=== PATIENT | female | born 1995 | race Caucasian/White ===

== ENCOUNTER 2017-09-01 00:46 | Observation (INO) | payer OTHER ==
[2017-09-01 01:45] LABS: Appearance CLEAR (CLEAR); Bacteria FEW /HPF (NEGATIVE); Bilirubin NEGATIVE (NEGATIVE); Blood NEGATIVE Ery/ul (0-5); Epithelial Cells MODERATE /HPF (FEW); Glucose NEGATIVE (NEGATIVE); Ketones NEGATIVE (NEGATIVE); Leukocyte Esterase 1+ (NEGATIVE); Nitrite NEGATIVE (NEGATIVE); Protein,Urine Dip NEGATIVE (Negative); Urobilinogen NORMAL mg/dL (0-1)
[2017-09-01 01:58] LABS: Amphetamine,Urine NEGATIVE (NEGATIVE); Barbiturate,Urine NEGATIVE (NEGATIVE); Benzodiazepine,Urine NEGATIVE (NEGATIVE); Cocaine,Urine NEGATIVE (NEGATIVE); Methadone,Urine NEGATIVE (NEGATIVE); Opiate,Urine NEGATIVE (NEGATIVE); PCP,Urine NEGATIVE (NEGATIVE); THC,Urine NEGATIVE (NEGATIVE)
[2017-09-01 04:50] VITALS: BP 123/70; PULSE 78
== END 2017-09-01 04:50 | disposition home or self-care (01) ==
LOC: MED SURG 00:46 → OB 02:05
PROVIDERS: ADMIT Family Medicine; ATTEND Family Medicine
DX: Z34.82 Encounter for supervision of other normal pregnancy, second trimester (principal)
CPT/HCPCS: 80307; 81000; G0378

== ENCOUNTER 2017-09-09 07:02 | Inpatient (IN) | payer OTHER ==
[2017-09-09] MEDS ORDERED: PITOCIN 30 UNITS/ LR 500 ML 500 ML IV SCH (07:30)
[2017-09-09] MEDS: Lactated Ringers 1,000 ML IV SCH ×2 (08:00→13:43)
[2017-09-09 08:17] LABS: Hematocrit 29.1 % (35-47); Hemoglobin 9.2 gm/dl (12.0-16.0); Mean Cell Volume 83.9 fl (78-100); Mean Corpuscular Hemoglobin 26.5 pg (26-32); Mean Corpuscular Hgb Concent. 31.6 g/dl (32-36); Mean Platelet Volume 11.2 fl (6-9.5); Platelet Count 264 K/mm3 (150-450); Red Blood Count 3.47 M/mm3 (4.1-5.4); Red Cell Distribution Width 15.3 % (11.5-14.0)
[2017-09-09 08:44] LABS: BAND 2 % (0.0-2.0); Lymphocytes 37 % (24-44); Monocyte 5 % (0.0-12.0); Neutrophils 56 % (36.0-66.0); Platelet Estimate NORMAL (NORMAL); Total Cells Counted 100
[2017-09-09 08:46] LABS: Granulocyte Absolute (ANC) 4.63 (1.4-6.9)
[2017-09-09] MEDS: STADOL 2 MG IV PRN ×2 (12:00→13:43)
[2017-09-09] MEDS ORDERED: OB EPIDURAL NAROPIN/SUFENTANIL IN NACL EPIDURAL PRN (16:46)
[2017-09-09] MEDS ORDERED: Lactated Ringers 1,000 ML IV ONE (16:46)
[2017-09-09] MEDS ORDERED: Ephedrine Sulfate 50 MG/ML IV PRN (16:46)
[2017-09-09] MEDS ORDERED: Mylicon 80MG PO PRN (16:47)
[2017-09-09] MEDS ORDERED: Dulcolax 10 MG SUPP PR PRN (16:47)
[2017-09-09] MEDS ORDERED: Dermoplast Spray TP PRN (16:47)
[2017-09-09] MEDS ORDERED: Restoril 15 MG PO PRN (16:47)
[2017-09-09] MEDS ORDERED: NORCO 5/325 MG PO PRN (16:47)
[2017-09-09] MEDS ORDERED: Ambien 10 MG PO PRN (16:47)
[2017-09-09] MEDS ORDERED: TYLENOL EXTRA STRENGTH 500 MG PO PRN (16:47)
[2017-09-09] MEDS ORDERED: Anucort-HC SUPPOSITORY PR PRN (16:47)
[2017-09-09] MEDS ORDERED: CORTISONE 1% CREAM TP PRN (16:47)
[2017-09-09] MEDS ORDERED: TUCKS TP PRN (16:47)
[2017-09-09] MEDS ORDERED: Rhogam Plus 300 MCG IM ONE (17:30)
[2017-09-09] MEDS ORDERED: Adacel Vial IM ONE (18:00)
[2017-09-09] MEDS ORDERED: M-M-R II Vaccine With Diluent SQ ONE (18:00)
[2017-09-09] MEDS: MOTRIN 400 MG PO PRN (20:08)
[2017-09-09 20:54] LABS: Amphetamine,Urine NEGATIVE (NEGATIVE); Barbiturate,Urine NEGATIVE (NEGATIVE); Benzodiazepine,Urine NEGATIVE (NEGATIVE); Cocaine,Urine NEGATIVE (NEGATIVE); Methadone,Urine NEGATIVE (NEGATIVE); Opiate,Urine NEGATIVE (NEGATIVE); PCP,Urine NEGATIVE (NEGATIVE); THC,Urine NEGATIVE (NEGATIVE)
[2017-09-09] MEDS: Colace 100 MG PO SCH (21:52)
[2017-09-10] MEDS: MOTRIN 400 MG PO PRN ×3 (03:59→16:49)
[2017-09-10 06:00] LABS: BASOPHIL % 0.2 % (0.0-0.4); Basophil (Absolute #) 0.02 (0-0.4); Eosinophil % 0.2 % (0.00-5.0); Eosinophil (Absolute #) 0.02 (0-0.5); Granulocyte Absolute (ANC) 7.45 (1.4-6.9); Hematocrit 28.3 % (35-47); Hemoglobin 8.8 gm/dl (12.0-16.0); Lymphocyte (Absolute #) 2.11 (1.0-4.6); Lymphocytes % 20.4 % (24.0-44.0); Mean Cell Volume 84.7 fl (78-100); Mean Corpuscular Hemoglobin 26.3 pg (26-32); Mean Corpuscular Hgb Concent. 31.1 g/dl (32-36); Mean Platelet Volume 11.4 fl (6-9.5); Monocyte (Absolute #) 0.74 (0.0-1.3); Monocytes % 7.2 % (0.0-12.0); Platelet Count 242 K/mm3 (150-450); Red Blood Count 3.34 M/mm3 (4.1-5.4); Red Cell Distribution Width 15.4 % (11.5-14.0); White Blood Count 10.3 K/mm3 (4.0-10.5)
[2017-09-10] MEDS: Colace 100 MG PO SCH ×3 (10:44→22:00)
[2017-09-10] MEDS: FERREX 150 PO SCH (10:44)
[2017-09-11] MEDS: MOTRIN 400 MG PO PRN ×2 (00:06→11:41)
[2017-09-11 01:53] VITALS: O2SAT 98
[2017-09-11 06:08] LABS: BASOPHIL % 0.2 % (0.0-0.4); Basophil (Absolute #) 0.02 (0-0.4); Eosinophil (Absolute #) 0.08 (0-0.5); Granulocyte Absolute (ANC) 5.34 (1.4-6.9); Granulocytes % 64.7 % (36.0-66.0); Hematocrit 27.2 % (35-47); Hemoglobin 8.5 gm/dl (12.0-16.0); Lymphocyte (Absolute #) 2.24 (1.0-4.6); Lymphocytes % 27.2 % (24.0-44.0); Mean Corpuscular Hgb Concent. 31.3 g/dl (32-36); Mean Platelet Volume 11.1 fl (6-9.5); Monocyte (Absolute #) 0.57 (0.0-1.3); Monocytes % 6.9 % (0.0-12.0); Platelet Count 270 K/mm3 (150-450); Red Cell Distribution Width 15.8 % (11.5-14.0); White Blood Count 8.3 K/mm3 (4.0-10.5)
[2017-09-11 06:10] LABS: Mean Corpuscular Hemoglobin 26.5 pg (26-32)
--- NOTE | 2017-09-11 10:50 | PCM.DS ---
Discharge Summary Date of Admission: 09/09/17 07:02 Admitting Physician: MONICA PAULA Consults: Consults on Case 09/09/17 16:46 Notify Anesthesia Provider PRN 09/09/17 16:47 Notify Physician Primary Care Provider: MONICA PAULA Allergies Allergies Penicillins Allergy (Intermediate, Verified 09/01/17 01:32) [facility] Summary - Hospital Course Hospital Course: Pt was admitted as in spontaneous labor, delivered vaginally without complication. Had some shortness of breath and fatigue her first post day, with hgb 8.8. Has no complaints today and hgb is stable at 8.5. Bleeding is lessening. Taking ibuprofen for pain intermittently. Will discharge to home. - Vitals & Intake/Output Vital Signs: Vital Signs Temperature 98 F 09/11/17 01:46 Pulse Rate 75 09/11/17 08:00 Respiratory Rate 18 09/11/17 08:00 Blood Pressure 105/65 09/11/17 08:00 O2 Sat by Pulse Oximetry 98 09/11/17 01:46 Intake & Output: Intake & Output 09/08/17 09/09/17 09/10/17 09/11/17 11:59 11:59 11:59 11:59 Intake Total 3200 2910 1000 Output Total 200 200 Balance 3000 2710 1000 Weight 132 kg - Lab Result Diagrams: 09/11/17 05:45 Lab Results-Last 24 Hrs: Lab Results-Last 24 Hours 09/11/17 Range/Units 05:45 WBC 8.3 (4.0-10.5) K/mm3 RBC 3.20 L (4.1-5.4) M/mm3 Hgb 8.5 L (12.0-16.0) gm/dl Hct 27.2 L (35-47) % MCV 85.0 (78-100) fl MCH 26.5 (26-32) pg MCHC 31.3 L (32-36) g/dl RDW 15.8 H (11.5-14.0) % Plt Count 270 (150-450) K/mm3 MPV 11.1 H (6-9.5) fl Gran % 64.7 (36.0-66.0) % Eos # (Auto) 0.08 (0-0.5) Absolute Lymphs (auto) 2.24 (1.0-4.6) Absolute Monos (auto) 0.57 (0.0-1.3) Lymphocytes % 27.2 (24.0-44.0) % Monocytes % 6.9 (0.0-12.0) % Eosinophils % 1.0 (0.00-5.0) % Basophils % 0.2 (0.0-0.4) % Absolute Granulocytes 5.34 (1.4-6.9) Basophils # 0.02 (0-0.4) Discharge Exam General Appearance: no apparent distress, alert Neurologic Exam: oriented x 3, cooperative Skin Exam: normal color, warm, dry, No rash Eye Exam: eyes nml inspection Ears, Nose, Throat Exam: moist mucous membranes Neck Exam: normal inspection Respiratory Exam: normal breath sounds, lungs clear, No crackles/rales, No rhonchi, No wheezing Cardiovascular Exam: regular rate/rhythm, normal heart sounds, No murmur Gastrointestinal/Abdomen Exam: soft, normal bowel sounds, other (fundus firm under umbilicus) Extremity Exam: No pedal edema, No swelling Back Exam: normal inspection, No rash Final Diagnosis/Problem List - Final Discharge Diagnosis/Problem (1) Vaginal delivery Current Visit: Yes Status: Acute Assessment & Plan: Doing great, d/c home today on ibuprofen. Baby was sleeping with dad when I came in the room, I spoke with mom and dad both about the dangers of sleeping with the baby, advised DO NOT sleep with baby. (2) Anemia Current Visit: Yes Status: Acute Assessment & Plan: will give iron BID - Discharge Disposition: Home, Self-Care Condition: Good Prescriptions: New Ibuprofen 600 mg PO TID PRN #35 tablet PRN Reason: Pain Continue Ferrous Sulfate [Iron] 325 mg PO BID Follow up with: MONICA PAULA MD [Primary Care Provider] - 1 Week
[2017-09-11] MEDS: FERREX 150 PO SCH (11:41)
[2017-09-11] MEDS: Colace 100 MG PO SCH (11:43)
[2017-09-11 17:05] VITALS: BP 114/69; PULSE 68
== END 2017-09-11 17:35 | disposition home or self-care (01) | DRG 775 ==
LOC: OBSVTOIN 07:02 → MED SURG 07:02 → OB 13:11
PROVIDERS: ADMIT Family Medicine; ATTEND Family Medicine
PROC: 10E0XZZ Delivery of Products of Conception, External Approach (ICD-10-PCS; principal; 2017-09-09)
DX: O80 Encounter for full-term uncomplicated delivery (principal); Z3A.39 39 weeks gestation of pregnancy; Z37.0 Single live birth; D64.9 Anemia, unspecified
CPT/HCPCS: 36415; 80307; 85025; 90471; 90472; 90707; 90715; G0378; J0595; J2590; J2790; J2795; A9270-GY

== ENCOUNTER 2019-02-17 20:23 | Observation (INO) | payer OTHER ==
[2019-02-17 21:03] LABS: Appearance CLOUDY (CLEAR); Bilirubin NEGATIVE (NEGATIVE); Blood NEGATIVE Ery/ul (0-5); Epithelial Cells FEW /HPF (FEW); Glucose NEGATIVE (NEGATIVE); Ketones NEGATIVE (NEGATIVE); Leukocyte Esterase LARGE (NEGATIVE); Mucus SLIGHT /HPF (NEGATIVE); Nitrite NEGATIVE (NEGATIVE); Protein,Urine Dip NEGATIVE (Negative); Specific Gravity 1.018 (1.005-1.025); Urobilinogen 4 mg/dL (0-1); WBC 51-100 /HPF (0-5)
[2019-02-17 21:23] LABS: Amphetamine,Urine NEGATIVE (NEGATIVE); Barbiturate,Urine NEGATIVE (NEGATIVE); Benzodiazepine,Urine NEGATIVE (NEGATIVE); Cocaine,Urine NEGATIVE (NEGATIVE); Methadone,Urine NEGATIVE (NEGATIVE); Opiate,Urine NEGATIVE (NEGATIVE); PCP,Urine NEGATIVE (NEGATIVE); THC,Urine NEGATIVE (NEGATIVE)
[2019-02-17 23:33] VITALS: BP 111/57; PULSE 77; O2SAT 97
== END 2019-02-17 23:20 | disposition home or self-care (01) ==
LOC: OB 20:23
PROVIDERS: ADMIT Family Medicine; ATTEND Family Medicine
DX: Z34.83 Encounter for supervision of other normal pregnancy, third trimester (principal)
CPT/HCPCS: 80307; 81001; 87086; G0378

== ENCOUNTER 2019-02-21 23:18 | Observation (INO) | payer OTHER ==
[2019-02-21 23:54] LABS: Appearance SLIGHTLY CLOUDY (CLEAR); Bilirubin NEGATIVE (NEGATIVE); Blood NEGATIVE Ery/ul (0-5); Epithelial Cells RARE /HPF (FEW); Glucose NEGATIVE (NEGATIVE); Ketones NEGATIVE (NEGATIVE); Leukocyte Esterase MODERATE (NEGATIVE); Mucus SLIGHT /HPF (NEGATIVE); Nitrite NEGATIVE (NEGATIVE); Protein,Urine Dip NEGATIVE (Negative); RBC 0-2 /HPF (0-2); Specific Gravity 1.015 (1.005-1.025); Urobilinogen 2 mg/dL (0-1)
[2019-02-22 00:02] LABS: Amphetamine,Urine NEGATIVE (NEGATIVE); Barbiturate,Urine NEGATIVE (NEGATIVE); Benzodiazepine,Urine NEGATIVE (NEGATIVE); Cocaine,Urine NEGATIVE (NEGATIVE); Methadone,Urine NEGATIVE (NEGATIVE); Opiate,Urine NEGATIVE (NEGATIVE); PCP,Urine NEGATIVE (NEGATIVE); THC,Urine NEGATIVE (NEGATIVE)
[2019-02-22] MEDS ORDERED: Lactated Ringers 1,000 ML IV ONE ×2 (02:14→02:20)
[2019-02-22] MEDS ORDERED: ROCEPHIN 1 Gm-D5w 50 ml Bag** 1 G/50 ML IVPB IV ONE (02:15)
[2019-02-22] MEDS ORDERED: BENADRYL 25 MG CAPSULE PO ONE (02:17)
[2019-02-22] MEDS ORDERED: BENADRYL 25 MG CAPSULE ONE (02:21)
[2019-02-22 05:17] VITALS: BP 108/60; PULSE 71
== END 2019-02-22 05:00 | disposition home or self-care (01) ==
LOC: OB 23:18
PROVIDERS: ADMIT Family Medicine; ATTEND Family Medicine
DX: Z34.83 Encounter for supervision of other normal pregnancy, third trimester (principal)
CPT/HCPCS: 80307; 81001; 87086; G0378; J0696; A9270-GY

== ENCOUNTER 2019-02-23 11:25 | Observation (INO) | payer OTHER ==
[2019-02-23 17:00] VITALS: BP 109/51; PULSE 93
== END 2019-02-23 14:00 | disposition home or self-care (01) ==
LOC: OB 11:25
PROVIDERS: ADMIT Family Medicine; ATTEND Family Medicine
DX: Z34.83 Encounter for supervision of other normal pregnancy, third trimester (principal)
CPT/HCPCS: G0378

== ENCOUNTER 2019-03-04 19:14 | Observation (INO) | payer OTHER ==
[2019-03-04 19:48] VITALS: O2SAT 98
[2019-03-04 20:07] LABS: Amphetamine,Urine NEGATIVE (NEGATIVE); Barbiturate,Urine NEGATIVE (NEGATIVE); Benzodiazepine,Urine NEGATIVE (NEGATIVE); Cocaine,Urine NEGATIVE (NEGATIVE); Methadone,Urine NEGATIVE (NEGATIVE); Opiate,Urine NEGATIVE (NEGATIVE); PCP,Urine NEGATIVE (NEGATIVE); THC,Urine NEGATIVE (NEGATIVE)
[2019-03-04 20:19] LABS: Appearance SLIGHTLY CLOUDY (CLEAR); Bilirubin NEGATIVE (NEGATIVE); Blood NEGATIVE Ery/ul (0-5); Epithelial Cells RARE /HPF (FEW); Glucose NEGATIVE (NEGATIVE); Ketones NEGATIVE (NEGATIVE); Leukocyte Esterase LARGE (NEGATIVE); Nitrite NEGATIVE (NEGATIVE); Protein,Urine Dip NEGATIVE (Negative); Specific Gravity 1.009 (1.005-1.025); Urobilinogen NEGATIVE mg/dL (0-1); WBC 26-50 /HPF (0-5)
[2019-03-04] MEDS ORDERED: Sodium Chloride 0.9% 1000 ML 1,000 ML IV STA (21:13)
[2019-03-04] MEDS ORDERED: ROCEPHIN 1 Gm-D5w 50 ml Bag** 1 G/50 ML IVPB IV ONE (21:21)
[2019-03-04] MEDS ORDERED: Lactated Ringers 1,000 ML IV SCH (21:30)
[2019-03-05 08:14] VITALS: BP 111/65; PULSE 75
[2019-03-05] MEDS ORDERED: ROCEPHIN 1 Gm-D5w 50 ml Bag** 1 G/50 ML IVPB IV ONE (21:13)
== END 2019-03-05 10:15 | disposition home or self-care (01) ==
LOC: OB 19:14
PROVIDERS: ADMIT Family Medicine; ATTEND Family Medicine
DX: Z34.83 Encounter for supervision of other normal pregnancy, third trimester (principal)
CPT/HCPCS: 80307; 81001; 87086; G0378; J0696

== ENCOUNTER 2020-12-08 17:33 | Emergency (ER) | payer OTHER ==
--- NOTE | 2020-12-08 18:25 | ERPHSYRPT ---
- History of Present Illness Time Seen by Provider: 12/08/20 17:50 Source: patient Exam Limitations: no limitations Patient Subjective Stated Complaint: Pt is 16.1 weeks and had a small amount of blood in underwear and then had began having sex and had more blood so she stopped and came to the hosp, states that she is having sharp pains everywhere in abdomen Triage Nursing Assessment: Pt was brought to the ER by the mother of the baby, pt is a serogate mother, tachycardic, rates pain in abdomen as 4/10, heart tones 144 bpm, light bleeding at this time per pt, doesn't appear to be in any distress Physician History: Patient is a 25-year-old female presents to our emergency department for evaluation of pelvic pain and vaginal bleeding patient is currently 16 weeks . Patient presents to our ED for evaluation of pelvic pain and vaginal bleeding. Symptoms started today. Patient observed blood in her underwear. Patient had intercourse with her significant other and states the bleeding became worse. Patient's pain is in the left pelvic region. Pain rated 4 out of 10. No associated nausea vomiting. No diarrhea. No rash. No trauma. No fever. Symptoms are mild to moderate in intensity. Patient denies the possibility of STI. Patient states she is otherwise healthy. She voices no other complaints at this time. RN notes states patient is a surrogate mother. Patient is not a surrogate mother. Patient is allowing her child to be adopted by a family friend. However patient is the biological parent to this fetus Timing/Duration: today Severity: moderate Modifying Factors: Improves With: nothing Associated Symptoms: denies symptoms Allergies/Adverse Reactions: Penicillins Allergy (Intermediate, Verified 03/04/19 19:51) Hives Home Medications: Multivit with Calcium,Iron,Min [Multiple Vitamins For Women] 1 tab PO DAILY 02/17/19 [History] Travel Risk - International Travel Have you traveled outside of the country in past 3 weeks: No - Coronavirus Screening Are you exhibiting any of the following symptoms?: No Close contact with a COVID-19 positive Pt in past 14-21 Days: No - Vaccine Status Have you recieved a Covid-19 vaccination: No - Review of Systems Constitutional: No Symptoms, No Fever, No Chills Eyes: No Symptoms Ears, Nose, & Throat: No Symptoms Respiratory: No Symptoms, No Cough, No Dyspnea Cardiac: No Symptoms, No Chest Pain, No Edema, No Syncope Abdominal/Gastrointestinal: No Symptoms, No Abdominal Pain, No Nausea, No Vomiting, No Diarrhea Genitourinary Symptoms: No Symptoms, No Dysuria Musculoskeletal: No Symptoms, No Back Pain, No Neck Pain Skin: No Symptoms, No Rash Neurological: No Symptoms, No Dizziness, No Focal Weakness, No Sensory Changes Psychological: No Symptoms Endocrine: No Symptoms Hematologic/Lymphatic: No Symptoms Immunological/Allergic: No Symptoms All Other Systems: Reviewed and Negative - Past Medical History Pertinent Past Medical History: Yes Psycho-Social History: Depression Other Medical History: mother states pt has had hx of bipolar disorder,ADHD, but since 1stbaby has improvd - Past Surgical History Past Surgical History: No - Social History Smoking Status: Current every day smoker How long have you smoked: 4 Exposure to second hand smoke: Yes Drug Use: none Patient Lives Alone: No - Female History Hx Now: Yes Expected Date of Delivery: 05/24/21 - Nursing Vital Signs Nursing Vital Signs: Initial Vital Signs Temperature 98.3 F 12/08/20 17:42 Pulse Rate 94 H 12/08/20 17:42 Blood Pressure 105/66 12/08/20 17:42 O2 Sat by Pulse Oximetry 97 12/08/20 17:42 Pain Scale Pain Intensity 0 - Physical Exam General Appearance: no apparent distress, alert Eye Exam: PERRL/EOMI, eyes nml inspection Ears, Nose, Throat Exam: normal ENT inspection, TMs normal, pharynx normal, moist mucous membranes Neck Exam: normal inspection, non-tender, supple, full range of motion Respiratory Exam: normal breath sounds, lungs clear, No respiratory distress Cardiovascular Exam: regular rate/rhythm, normal heart sounds, normal peripheral pulses Gastrointestinal/Abdomen Exam: soft, normal bowel sounds, No tenderness, No mass Pelvic Exam: normal external exam (No tenderness. No cervical motion tenderness. No active bleeding. Cervical os closed. Small amount of mucus- like pink discharge. No foul odors. Normal-appearing anatomy) Back Exam: normal inspection, normal range of motion, No CVA tenderness, No vertebral tenderness Extremity Exam: normal inspection, normal range of motion, pelvis stable Neurologic Exam: alert, oriented x 3, cooperative, normal mood/affect, nml cerebellar function, nml station & gait, sensation nml, No motor deficits Skin Exam: normal color, warm, dry, No rash Lymphatic Exam: No adenopathy SpO2 Interpretation: normal SpO2: 97 O2 Delivery: Room Air - Course Nursing assessment & vital signs reviewed: Yes Ordered Tests: Active Orders 24 hr Category Date Time Status OB LIMITED [US] Stat Exams 12/08/20 18:19 Taken CBC W DIFF Stat Lab 12/08/20 18:20 Completed CMP Stat Lab 12/08/20 18:20 Completed HCG, Quantitative (Inhouse) Stat Lab 12/08/20 18:08 Completed UA W/RFX UR CULTURE Stat Lab 12/08/20 18:09 Completed Wet Prep Stat Lab 12/08/20 19:05 Completed Medication Summary Discontinued Medications Generic Name Dose Route Start Last Admin Trade Name Freq PRN Reason Stop Dose Admin Rho Immune Globulin 300 mcg 12/08/20 20:16 12/08/20 21:21 Rhogam Plus 300 Mcg IM 12/08/20 20:17 300 mcg .ONCE ONE Administration Lab/Rad Data: Laboratory Result Diagrams 12/08/20 18:20 12/08/20 18:20 Laboratory Results 12/08/20 12/08/20 12/08/20 Range/Units 19:05 19:00 18:20 WBC (4.0-10.5) K/mm3 RBC (4.1-5.4) M/mm3 Hgb (12.0-16.0) gm/dl Hct (35-47) % MCV (78-100) fl MCH (26-32) pg MCHC (32-36) g/dl RDW (11.5-14.0) % Plt Count (150-450) K/mm3 MPV (7.5-11.0) fl Gran % (36.0-66.0) % Eos # (Auto) (0-0.5) Absolute Lymphs (auto) (1.0-4.6) Absolute Monos (auto) (0.0-1.3) Lymphocytes % (24.0-44.0) % Monocytes % (0.0-12.0) % Eosinophils % (0.00-5.0) % Basophils % (0.0-0.4) % Absolute Granulocytes (1.4-6.9) Basophils # (0-0.4) Sodium (137-145) mmol/L Potassium (3.5-5.1) mmol/L Chloride (98-107) mmol/L Carbon Dioxide (22-30) mmol/L Anion Gap (5-15) MEQ/L BUN (7-17) mg/dL Creatinine (0.52-1.04) mg/dL Estimated GFR ML/MIN Glucose (74-106) mg/dL Calcium (8.4-10.2) mg/dL Total Bilirubin (0.2-1.3) mg/dL AST (14-36) U/L ALT (0-35) U/L Alkaline Phosphatase (38-126) U/L Serum Total Protein (6.3-8.2) g/dL Albumin (3.5-5.0) g/dL Beta HCG, Quant mIU/ml Urine Color (YELLOW) Urine Appearance (CLEAR) Urine pH (5-6) Ur Specific [place] (1.005-1.025) Urine Protein (Negative) Urine Ketones (NEGATIVE) Urine Blood (0-5) Luis M/ul Urine Nitrite (NEGATIVE) Urine Bilirubin (NEGATIVE) Urine Urobilinogen (0-1) mg/dL Ur Leukocyte Esterase (NEGATIVE) Urine WBC (Auto) (0-5) /HPF Urine RBC (Auto) (0-2) /HPF U Epithel Cells (Auto) (FEW) /HPF Urine Bacteria (Auto) (NEGATIVE) /HPF Urine Mucus (Auto) (NEGATIVE) /HPF Urine Culture Reflexed (NO) Urine Glucose (NEGATIVE) mg/dL WBC (Wet Prep) Few RBC (Wet Prep) Rare Epi Cells (Wet Prep) Few Bacteria (Wet Prep) Few Clue Cells (Wet Prep) None Seen Trichomonas (Wet Prep) None Seen Budding Yeast (Wet Prp) None Seen Chlamydia DNA Probe NOT DETECTED (NEGATIVE) N.gonorrhoeae DNA Probe NOT DETECTED (NEGATIVE) ABO Group A Rh Factor NEGATIVE Antibody Screen POSITIVE (NEGATIVE) 12/08/20 12/08/20 12/08/20 Range/Units 18:20 18:20 18:09 WBC 6.1 (4.0-10.5) K/mm3 RBC 3.31 L (4.1-5.4) M/mm3 Hgb 9.5 L (12.0-16.0) gm/dl Hct 29.7 L (35-47) % MCV 89.7 (78-100) fl MCH 28.7 (26-32) pg MCHC 32.0 (32-36) g/dl RDW 15.2 H (11.5-14.0) % Plt Count 219 (150-450) K/mm3 MPV 11.4 H (7.5-11.0) fl Gran % 74.3 H (36.0-66.0) % Eos # (Auto) 0.01 (0-0.5) Absolute Lymphs (auto) 1.20 (1.0-4.6) Absolute Monos (auto) 0.34 (0.0-1.3) Lymphocytes % 19.7 L (24.0-44.0) % Monocytes % 5.6 (0.0-12.0) % Eosinophils % 0.2 (0.00-5.0) % Basophils % 0.2 (0.0-0.4) % Absolute Granulocytes 4.54 (1.4-6.9) Basophils # 0.01 (0-0.4) Sodium 136 L (137-145) mmol/L Potassium 3.6 (3.5-5.1) mmol/L Chloride 104 (98-107) mmol/L Carbon Dioxide 23 (22-30) mmol/L Anion Gap 12.0 (5-15) MEQ/L BUN 14 (7-17) mg/dL Creatinine 0.66 (0.52-1.04) mg/dL Estimated GFR > 60.0 ML/MIN Glucose 95 (74-106) mg/dL Calcium 9.1 (8.4-10.2) mg/dL Total Bilirubin < 0.10 L (0.2-1.3) mg/dL AST 16 (14-36) U/L ALT 7 (0-35) U/L Alkaline Phosphatase 49 (38-126) U/L Serum Total Protein 6.4 (6.3-8.2) g/dL Albumin 3.6 (3.5-5.0) g/dL Beta HCG, Quant mIU/ml Urine Color YELLOW (YELLOW) Urine Appearance CLEAR (CLEAR) Urine pH 6.0 (5-6) Ur Specific [place] 1.021 (1.005-1.025) Urine Protein NEGATIVE (Negative) Urine Ketones NEGATIVE (NEGATIVE) Urine Blood SMALL (0-5) Lui Sm/ul Urine Nitrite NEGATIVE (NEGATIVE) Urine Bilirubin NEGATIVE (NEGATIVE) Urine Urobilinogen 2 (0-1) mg/dL Ur Leukocyte Esterase NEGATIVE (NEGATIVE) Urine WBC (Auto) NONE (0-5) /HPF Urine RBC (Auto) NONE (0-2) /HPF U Epithel Cells (Auto) NONE (FEW) /HPF Urine Bacteria (Auto) NONE (NEGATIVE) /HPF Urine Mucus (Auto) SLIGHT (NEGATIVE) /HPF Urine Culture Reflexed NO (NO) Urine Glucose NEGATIVE (NEGATIVE) mg/dL WBC (Wet Prep) RBC (Wet Prep) Epi Cells (Wet Prep) Bacteria (Wet Prep) Clue Cells (Wet Prep) Trichomonas (Wet Prep) Budding Yeast (Wet Prp) Chlamydia DNA Probe (NEGATIVE) N.gonorrhoeae DNA Probe (NEGATIVE) ABO Group Rh Factor Antibody Screen (NEGATIVE) 12/08/20 Range/Units 18:08 WBC (4.0-10.5) K/mm3 RBC (4.1-5.4) M/mm3 Hgb (12.0-16.0) gm/dl Hct (35-47) % MCV (78-100) fl MCH (26-32) pg MCHC (32-36) g/dl RDW (11.5-14.0) % Plt Count (150-450) K/mm3 MPV (7.5-11.0) fl Gran % (36.0-66.0) % Eos # (Auto) (0-0.5) Absolute Lymphs (auto) (1.0-4.6) Absolute Monos (auto) (0.0-1.3) Lymphocytes % (24.0-44.0) % Monocytes % (0.0-12.0) % Eosinophils % (0.00-5.0) % Basophils % (0.0-0.4) % Absolute Granulocytes (1.4-6.9) Basophils # (0-0.4) Sodium (137-145) mmol/L Potassium (3.5-5.1) mmol/L Chloride (98-107) mmol/L Carbon Dioxide (22-30) mmol/L Anion Gap (5-15) MEQ/L BUN (7-17) mg/dL Creatinine (0.52-1.04) mg/dL Estimated GFR ML/MIN Glucose (74-106) mg/dL Calcium (8.4-10.2) mg/dL Total Bilirubin (0.2-1.3) mg/dL AST (14-36) U/L ALT (0-35) U/L Alkaline Phosphatase (38-126) U/L Serum Total Protein (6.3-8.2) g/dL Albumin (3.5-5.0) g/dL Beta HCG, Quant 13880 mIU/ml Urine Color (YELLOW) Urine Appearance (CLEAR) Urine pH (5-6) Ur Specific [place] (1.005-1.025) Urine Protein (Negative) Urine Ketones (NEGATIVE) Urine Blood (0-5) Luis M/ul Urine Nitrite (NEGATIVE) Urine Bilirubin (NEGATIVE) Urine Urobilinogen (0-1) mg/dL Ur Leukocyte Esterase (NEGATIVE) Urine WBC (Auto) (0-5) /HPF Urine RBC (Auto) (0-2) /HPF U Epithel Cells (Auto) (FEW) /HPF Urine Bacteria (Auto) (NEGATIVE) /HPF Urine Mucus (Auto) (NEGATIVE) /HPF Urine Culture Reflexed (NO) Urine Glucose (NEGATIVE) mg/dL WBC (Wet Prep) RBC (Wet Prep) Epi Cells (Wet Prep) Bacteria (Wet Prep) Clue Cells (Wet Prep) Trichomonas (Wet Prep) Budding Yeast (Wet Prp) Chlamydia DNA Probe (NEGATIVE) N.gonorrhoeae DNA Probe (NEGATIVE) ABO Group Rh Factor Antibody Screen (NEGATIVE) - Progress Progress: improved Progress Note: She is Rh-. RhoGam will need to be administered. Case discussed with Dr. Paula. We will administer RhoGam in our ED and he will follow up with patient as an outpatient. Patient to rest in the meantime. No indication for further work-up. The ultrasound was essentially nonremarkable. There is a viable IUP. Observed cervical os is closed. Patient currently asymptomatic. Will discharge at this time. Patient voices no other complaints concerns at this time. She will follow-up within 48 hours as discussed. 12/08/20 20:17 12/08/20 20:19 Portions of this note were created with voice recognition technology. There may be grammatical, spelling, punctuation or sound alike errors 12/08/20 21:39 Chlamydia negative. Wet prep negative as well. Patient for antibiotics at this time. UA negative for UTI. Discussed with Dr.: Luis Will see patient in: office Counseled pt/family regarding: lab results, diagnosis, need for follow-up, rad results - Departure Departure Disposition: Home Clinical Impression: Threatened Condition: Stable Critical Care Time: No Referrals: MONICA PAULA MD [Primary Care Provider] - Additional Instructions: Discharge/Care Plan KETAN MYERS was seen on 12/08/20 in the Emergency Room. The patient was counseled regarding Diagnosis,Lab results, Imaging studies, need for follow up and when to return to the Emergency Room. Prescriptions given: Discharge Note I have spoken with the patient and/or caregivers. I have explained the patient's condition, diagnosis and treatment plan based on the information available to me at this time. I have answered the patient's and/or caregiver's questions and addressed any concerns. The patient and/or caregivers have as good understanding of the patient's diagnosis, condition and treatment plan as can be expected at this point. The vital signs have been stable. The patient's condition is stable and appropriate for discharge from the emergency department. The patient will pursue further outpatient evaluation with the primary care physician or other designated or consulting physician as outlined in the discharge instructions. The patient and/or caregivers are agreeable to this plan of care and follow-up instructions have been explained in detail. The patient and/or caregivers have received these instruction. The patient/and or caregivers are aware that any significant change in condition or worsening of symptoms should prompt an immediate return to this or the closest emergency department or call 911.
[2020-12-08 18:36] LABS: Absolute Neutrophil Ct (ANC) 4.54 (1.4-6.9); BASOPHIL % 0.2 % (0.0-0.4); Basophil (Absolute #) 0.01 (0-0.4); Eosinophil % 0.2 % (0.00-5.0); Eosinophil (Absolute #) 0.01 (0-0.5); Hematocrit 29.7 % (35-47); Hemoglobin 9.5 gm/dl (12.0-16.0); Lymphocytes % 19.7 % (24.0-44.0); Mean Cell Volume 89.7 fl (78-100); Mean Corpuscular Hemoglobin 28.7 pg (26-32); Mean Platelet Volume 11.4 fl (7.5-11.0); Monocyte (Absolute #) 0.34 (0.0-1.3); Monocytes % 5.6 % (0.0-12.0); Neutrophil % 74.3 % (36.0-66.0); Platelet Count 219 K/mm3 (150-450); Red Blood Count 3.31 M/mm3 (4.1-5.4); Red Cell Distribution Width 15.2 % (11.5-14.0); White Blood Count 6.1 K/mm3 (4.0-10.5)
[2020-12-08 18:49] LABS: ALBUMIN 3.6 g/dL (3.5-5.0); ALKALINE PHOSPHATASE 49 U/L (38-126); BILIRUBIN,TOTAL < 0.10 mg/dL (0.2-1.3); BLOOD UREA NITROGEN 14 mg/dL (7-17); CHLORIDE 104 mmol/L (98-107); Calcium 9.1 mg/dL (8.4-10.2); Carbon Dioxide 23 mmol/L (22-30); Creatinine 1 0.66 mg/dL (0.52-1.04); EST GLOMERULAR FILTRATION RATE > 60.0 ML/MIN; Glucose 95 mg/dL (74-106); Potassium 3.6 mmol/L (3.5-5.1); SGOT/AST 16 U/L (14-36); SGPT/ALT 7 U/L (0-35); SODIUM 136 mmol/L (137-145); Total Protein 6.4 g/dL (6.3-8.2)
[2020-12-08 18:56] LABS: Appearance CLEAR (CLEAR); Bilirubin NEGATIVE (NEGATIVE); Blood SMALL Ery/ul (0-5); Glucose NEGATIVE (NEGATIVE); Ketones NEGATIVE (NEGATIVE); Leukocyte Esterase NEGATIVE (NEGATIVE); Mucus SLIGHT /HPF (NEGATIVE); Nitrite NEGATIVE (NEGATIVE); Protein,Urine Dip NEGATIVE (Negative); Specific Gravity 1.021 (1.005-1.025); Urobilinogen 2 mg/dL (0-1)
[2020-12-08 20:04] LABS: RH TYPING NEGATIVE
[2020-12-08 20:07] LABS: Antibody Screen POSITIVE (NEGATIVE)
[2020-12-08 20:16] LABS: CHLAMYDIA DNA NOT DETECTED (NEGATIVE); GC DNA Probe NOT DETECTED (NEGATIVE)
[2020-12-08] MEDS ORDERED: Rhogam Plus 300 MCG IM ONE (20:16)
[2020-12-08 20:23] LABS: Bacteria Few; Clue Cells None Seen; Red Blood Cells Rare; Trichomonas None Seen; White Blood Cells Few; Yeast None Seen
[2020-12-08 20:43] LABS: ABO TYPING A
[2020-12-08 21:51] VITALS: BP 114/60; PULSE 70; O2SAT 100
--- NOTE | 2020-12-09 08:44 | XRAY ---
Indication: Left pelvic pain. Spotting. Limited OB ultrasound performed. Comparison: None for this . There is a single viable intrauterine currently in breech presentation. heart rate 167 BPM. Predominantly anterior placenta without abruption/previa. Four-quadrant DESTINY is 11.5 cm. Cervical length measures 3.8 cm. No measurements obtained. Impression: Limited OB ultrasound demonstrates single viable intrauterine . No acute findings. Comment: Preliminary report was given.
== END 2020-12-08 21:51 | disposition home or self-care (01) ==
LOC: ED 17:33
DX: O20.0 Threatened abortion (principal); Z3A.16 16 weeks gestation of pregnancy
CPT/HCPCS: 36415; 76815; 80053; 81001; 84702; 85025; 86850; 86900; 86901; 87210; 87491; 87591; 96372; 99284; J2790

== ENCOUNTER 2021-04-05 01:01 | Observation (INO) | payer OTHER ==
[2021-04-05 02:27] LABS: Amphetamine,Urine NEGATIVE (NEGATIVE); Barbiturate,Urine NEGATIVE (NEGATIVE); Benzodiazepine,Urine NEGATIVE (NEGATIVE); Cocaine,Urine NEGATIVE (NEGATIVE); Methadone,Urine NEGATIVE (NEGATIVE); Opiate,Urine NEGATIVE (NEGATIVE); PCP,Urine NEGATIVE (NEGATIVE); THC,Urine NEGATIVE (NEGATIVE)
== END 2021-04-05 05:30 | disposition home or self-care (01) ==
LOC: OB 01:01
PROVIDERS: ADMIT Family Medicine; ATTEND Family Medicine
DX: Z34.83 Encounter for supervision of other normal pregnancy, third trimester (principal); Z3A.33 33 weeks gestation of pregnancy
CPT/HCPCS: 80307; G0378

== ENCOUNTER 2021-05-04 15:25 | Observation (INO) | payer OTHER ==
[2021-05-04 15:57] VITALS: PULSE 85
[2021-05-04 16:03] LABS: Appearance CLOUDY (CLEAR); Bacteria FEW /HPF (NEGATIVE); Bilirubin NEGATIVE (NEGATIVE); Blood NEGATIVE Ery/ul (0-5); Epithelial Cells RARE /HPF (FEW); Glucose NEGATIVE (NEGATIVE); Ketones NEGATIVE (NEGATIVE); Leukocyte Esterase LARGE (NEGATIVE); Mucus SLIGHT /HPF (NEGATIVE); Nitrite NEGATIVE (NEGATIVE); Protein,Urine Dip NEGATIVE (Negative); RBC 0-2 /HPF (0-2); Specific Gravity 1.016 (1.005-1.025); Urobilinogen NEGATIVE mg/dL (0-1)
[2021-05-04 16:08] LABS: Amphetamine,Urine NEGATIVE (NEGATIVE); Barbiturate,Urine NEGATIVE (NEGATIVE); Benzodiazepine,Urine NEGATIVE (NEGATIVE); Cocaine,Urine NEGATIVE (NEGATIVE); Methadone,Urine NEGATIVE (NEGATIVE); Opiate,Urine NEGATIVE (NEGATIVE); PCP,Urine NEGATIVE (NEGATIVE); THC,Urine NEGATIVE (NEGATIVE)
[2021-05-04 17:18] VITALS: BP 116/67
== END 2021-05-04 17:25 | disposition home or self-care (01) ==
LOC: OB 15:25
PROVIDERS: ADMIT Family Medicine; ATTEND Family Medicine
DX: Z34.83 Encounter for supervision of other normal pregnancy, third trimester (principal); Z3A.36 36 weeks gestation of pregnancy
CPT/HCPCS: 80307; 81001; 87086; G0378

== ENCOUNTER 2021-05-08 15:32 | Observation (INO) | payer OTHER ==
[2021-05-08 15:53] VITALS: BP 124/79; PULSE 110
--- NOTE | 2021-05-08 17:17 | XRAY ---
Indication: Decreased movement. Evaluate DESTINY. Limited OB ultrasound demonstrates single intrauterine with heart rate 134 BPM. Four-quadrant DESTINY is 13.7 cm, largest pocket 5 cm.
== END 2021-05-08 16:46 | disposition home or self-care (01) ==
LOC: OB 15:32
PROVIDERS: ADMIT Family Medicine; ATTEND Family Medicine
DX: Z34.83 Encounter for supervision of other normal pregnancy, third trimester (principal); Z3A.37 37 weeks gestation of pregnancy
CPT/HCPCS: 59025; 76815; G0378

== ENCOUNTER 2021-05-14 01:27 | Inpatient (IN) | payer OTHER ==
[2021-05-14] MEDS ORDERED: PITOCIN 30 UNITS/ LR 500 ML 500 ML IV ONE (02:01)
[2021-05-14] MEDS ORDERED: Lactated Ringers 1,000 ML IV ONE ×2 (02:02→02:04)
[2021-05-14] MEDS ORDERED: Ephedrine Sulfate 50 MG/ML IV PRN (02:04)
[2021-05-14] MEDS ORDERED: Zofran 4 MG/2 ML VIAL IV PRN (02:04)
[2021-05-14] MEDS ORDERED: FENTANYL 2 MCG-BUPIV 0.125%-NS 250 ML Epidur 250 ML EPIDURAL SCH (02:15)
[2021-05-14 02:19] LABS: BASOPHIL % 0.3 % (0.0-0.4); Basophil (Absolute #) 0.02 (0-0.4); Eosinophil % 0.1 % (0.00-5.0); Eosinophil (Absolute #) 0.01 (0-0.5); Lymphocyte (Absolute #) 1.76 (1.0-4.6); Lymphocytes % 23.8 % (24.0-44.0); Mean Cell Volume 82.6 fl (78-100); Mean Corpuscular Hemoglobin 25.6 pg (26-32); Mean Platelet Volume 11.1 fl (7.5-11.0); Monocytes % 8.1 % (0.0-12.0); Neutrophil % 67.7 % (36.0-66.0); Platelet Count 248 K/mm3 (150-450); Red Blood Count 3.51 M/mm3 (4.1-5.4); Red Cell Distribution Width 14.7 % (11.5-14.0); White Blood Count 7.4 K/mm3 (4.0-10.5)
[2021-05-14 02:22] LABS: Appearance SLIGHTLY CLOUDY (CLEAR); Bilirubin NEGATIVE (NEGATIVE); Blood NEGATIVE Ery/ul (0-5); Epithelial Cells RARE /HPF (FEW); Glucose NEGATIVE (NEGATIVE); Ketones NEGATIVE (NEGATIVE); Leukocyte Esterase TRACE (NEGATIVE); Mucus SLIGHT /HPF (NEGATIVE); Nitrite NEGATIVE (NEGATIVE); Protein,Urine Dip NEGATIVE (Negative); Specific Gravity 1.019 (1.005-1.025); Urobilinogen NEGATIVE mg/dL (0-1); WBC 0-2 /HPF (0-5)
[2021-05-14] MEDS ORDERED: PITOCIN 30 UNITS/ LR 500 ML 30 UNITS/500 ML PLAST..BAG IV SCH (02:30)
[2021-05-14 02:35] LABS: Amphetamine,Urine NEGATIVE (NEGATIVE); Barbiturate,Urine NEGATIVE (NEGATIVE); Benzodiazepine,Urine NEGATIVE (NEGATIVE); Cocaine,Urine NEGATIVE (NEGATIVE); Methadone,Urine NEGATIVE (NEGATIVE); Opiate,Urine NEGATIVE (NEGATIVE); PCP,Urine NEGATIVE (NEGATIVE); THC,Urine NEGATIVE (NEGATIVE)
[2021-05-14] MEDS ORDERED: SUBLIMAZE 100 MCG/2 ML ONE (02:38)
[2021-05-14] MEDS: Lactated Ringers 1,000 ML IV SCH (03:21)
[2021-05-14] MEDS ORDERED: BENADRYL 50 MG/ML IV PRN (03:30)
[2021-05-14 03:34] LABS: ABO TYPING A; Antibody Screen POSITIVE (NEGATIVE); RH TYPING NEGATIVE
[2021-05-14] MEDS ORDERED: XYLOCAINE 1% HCL 20 ML MDV IJ PRN (04:00)
[2021-05-14] MEDS ORDERED: CLARITIN 10 MG PO ONE (04:00)
[2021-05-14] MEDS ORDERED: Anucort-HC SUPPOSITORY PR PRN (15:47)
[2021-05-14] MEDS ORDERED: LANSINOH 40 GM TOP PRN (15:47)
[2021-05-14] MEDS ORDERED: Mylicon 80MG PO PRN (15:47)
[2021-05-14] MEDS ORDERED: Dulcolax 10 MG SUPP PR PRN (15:47)
[2021-05-14] MEDS ORDERED: CORTISONE 1% CREAM TP PRN (15:47)
[2021-05-14] MEDS ORDERED: Restoril 15 MG PO PRN (15:47)
[2021-05-14] MEDS ORDERED: NORCO 5/325 MG PO PRN (15:47)
[2021-05-14] MEDS ORDERED: Ambien 10 MG PO PRN (15:47)
[2021-05-14] MEDS ORDERED: Dermoplast Spray TP PRN (15:47)
[2021-05-14] MEDS ORDERED: TUCKS TP PRN (15:47)
[2021-05-14] MEDS: MOTRIN 400 MG PO PRN (18:05)
[2021-05-14] MEDS: TYLENOL EXTRA STRENGTH 500 MG PO PRN (20:01)
[2021-05-14] MEDS: Colace 100 MG PO SCH (21:52)
[2021-05-15] MEDS: MOTRIN 400 MG PO PRN ×2 (00:56→15:58)
[2021-05-15] MEDS: Lactated Ringers 1,000 ML IV SCH (02:44)
[2021-05-15 03:01] VITALS: O2SAT 98
[2021-05-15 05:58] LABS: Absolute Neutrophil Ct (ANC) 5.27 (1.4-6.9); BASOPHIL % 0.3 % (0.0-0.4); Basophil (Absolute #) 0.02 (0-0.4); Eosinophil % 0.4 % (0.00-5.0); Eosinophil (Absolute #) 0.03 (0-0.5); Hematocrit 30.1 % (35-47); Hemoglobin 8.9 gm/dl (12.0-16.0); Lymphocyte (Absolute #) 1.95 (1.0-4.6); Lymphocytes % 24.8 % (24.0-44.0); Mean Cell Volume 85.8 fl (78-100); Mean Corpuscular Hemoglobin 25.4 pg (26-32); Mean Corpuscular Hgb Concent. 29.6 g/dl (32-36); Monocyte (Absolute #) 0.58 (0.0-1.3); Monocytes % 7.4 % (0.0-12.0); Neutrophil % 67.1 % (36.0-66.0); Platelet Count 204 K/mm3 (150-450); Red Blood Count 3.51 M/mm3 (4.1-5.4); Red Cell Distribution Width 14.7 % (11.5-14.0); White Blood Count 7.9 K/mm3 (4.0-10.5)
[2021-05-15 06:42] LABS: HBsAg Screen Negative (Negative)
[2021-05-15] MEDS: TYLENOL EXTRA STRENGTH 500 MG PO PRN (08:37)
[2021-05-15] MEDS: Colace 100 MG PO SCH (09:05)
[2021-05-15] MEDS ORDERED: FERREX 150 PO SCH (10:00)
--- NOTE | 2021-05-15 10:14 | PCM.DS ---
Discharge Summary Date of Admission: 05/14/21 01:31 Admitting Physician: MONICA PAULA Consults: Consults on Case 05/14/21 03:00 Notify Anesthesia Provider PRN 05/14/21 14:08 Navigation ONCE Primary Care Provider: MONICA PAULA Allergies Allergies Penicillins Allergy (Intermediate, Verified 05/14/21 01:42) [facility] Summary - Hospital Course Hospital Course: patient arrived in active labor at 38 3/7 wks, had uncomplicated . bottle feeding and appears well bonded with infant. does not have custody of her other children so DCS notified prior to discharge. mild lochia, pain is mild and well controlled. - Vitals & Intake/Output Vital Signs: Vital Signs Temperature 98 F 05/15/21 02:00 Pulse Rate 69 05/15/21 02:00 Respiratory Rate 16 05/15/21 02:00 Blood Pressure 109/74 05/15/21 02:00 O2 Sat by Pulse Oximetry 98 05/15/21 02:00 Intake & Output: Intake & Output 05/12/21 05/13/21 05/14/21 05/15/21 11:59 11:59 11:59 11:59 Intake Total 2360 2420 Output Total 250 150 Balance 2110 2270 Weight 60.781 kg - Lab Result Diagrams: 05/15/21 05:15 Lab Results-Last 24 Hrs: Lab Results-Last 24 Hours 05/14/21 05/15/21 Range/Units 02:10 05:15 WBC 7.9 (4.0-10.5) K/mm3 RBC 3.51 L (4.1-5.4) M/mm3 Hgb 8.9 L (12.0-16.0) gm/dl Hct 30.1 L (35-47) % MCV 85.8 (78-100) fl MCH 25.4 L (26-32) pg MCHC 29.6 L (32-36) g/dl RDW 14.7 H (11.5-14.0) % Plt Count 204 (150-450) K/mm3 MPV 11.0 (7.5-11.0) fl Gran % 67.1 H (36.0-66.0) % Eos # (Auto) 0.03 (0-0.5) Absolute Lymphs (auto) 1.95 (1.0-4.6) Absolute Monos (auto) 0.58 (0.0-1.3) Lymphocytes % 24.8 (24.0-44.0) % Monocytes % 7.4 (0.0-12.0) % Eosinophils % 0.4 (0.00-5.0) % Basophils % 0.3 (0.0-0.4) % Absolute Granulocytes 5.27 (1.4-6.9) Basophils # 0.02 (0-0.4) Hep Bs Antigen Negative (Negative) Discharge Exam General Appearance: no apparent distress, alert Neurologic Exam: alert, oriented x 3 Respiratory Exam: normal breath sounds, lungs clear, No respiratory distress Cardiovascular Exam: regular rate/rhythm, normal heart sounds Gastrointestinal/Abdomen Exam: soft, No tenderness, No mass Extremity Exam: normal inspection, normal range of motion Skin Exam: normal color, warm, dry Final Diagnosis/Problem List - Final Discharge Diagnosis/Problem (1) Vaginal delivery Current Visit: No Status: Acute Assessment & Plan: routine care, doing well Code(s): O80 - ENCOUNTER FOR FULL-TERM UNCOMPLICATED DELIVERY - Discharge Disposition: Home, Self-Care Condition: Stable Prescriptions: Continue Multivit with Calcium,Iron,Min [Multiple Vitamins For Women] 1 tab PO DAILY Discontinued Ferrous Sulfate 325 mg PO BID Follow up with: MONICA PAULA MD [Primary Care Provider] -
[2021-05-15 16:12] VITALS: BP 119/68; PULSE 82
== END 2021-05-15 20:00 | disposition home or self-care (01) | DRG 807 ==
LOC: OB 01:31 → OBSVTOIN 01:31
PROVIDERS: ADMIT Family Medicine; ATTEND Family Medicine
PROC: 10E0XZZ Delivery of Products of Conception, External Approach (ICD-10-PCS; principal; 2021-05-14)
DX: O80 Encounter for full-term uncomplicated delivery (principal); Z37.0 Single live birth; Z3A.38 38 weeks gestation of pregnancy
CPT/HCPCS: 36415; 80307; 81001; 85025; 86850; 86900; 86901; 87340; G0378; J2590; J3010; A9270-GY

== ENCOUNTER 2021-07-14 08:41 | Day surgery (SDC) | payer OTHER ==
[~2021-07-14 08:41] MED LIST: Lactated Ringers 1,000 ML IV ONE; Sensorcaine 0.25% 10 ML ONE
[2021-07-14] MEDS ORDERED: CLINDAMYCIN-D5W 900 MG/50 ML*** 900 MG/50 ML BAG IV ONE ×2 (08:56→09:11)
[2021-07-14] MEDS ORDERED: Lactated Ringers 1,000 ML IV SCH (09:00)
[2021-07-14] MEDS ORDERED: Lactated Ringers 1,000 ML IV ONE (09:11)
[2021-07-14] MEDS ORDERED: Xylocaine-Mpf 2% 5 Ml Vial ONE (09:51)
[2021-07-14] MEDS ORDERED: Zofran 4 MG/2 ML VIAL ONE (09:51)
[2021-07-14] MEDS ORDERED: SUBLIMAZE 100 MCG/2 ML ONE (09:51)
[2021-07-14] MEDS ORDERED: Zemuron 100 MG/10 ML ONE (09:51)
[2021-07-14] MEDS ORDERED: DIPRIVAN 200 MG/20 ML IV ONE (09:51)
[2021-07-14] MEDS ORDERED: Decadron 4 MG INJ ONE (09:51)
[2021-07-14] MEDS ORDERED: TORAdol 30 mg Injection ONE (09:51)
[2021-07-14] MEDS ORDERED: BRIDION 200MG/2ML IV ONE (09:51)
[2021-07-14] MEDS ORDERED: Versed 2 MG/2 ML Injection ONE (09:52)
[2021-07-14] MEDS ORDERED: ROBINUL ONE (10:08)
[2021-07-14 11:29] VITALS: O2SAT 100
[2021-07-14 15:09] VITALS: BP 117/74; PULSE 55
[2021-07-14 15:33] LABS: Appearance SLIGHTLY CLOUDY (CLEAR); Bilirubin NEGATIVE (NEGATIVE); Blood NEGATIVE Ery/ul (0-5); Epithelial Cells RARE /HPF (FEW); Glucose NEGATIVE (NEGATIVE); Ketones NEGATIVE (NEGATIVE); Leukocyte Esterase NEGATIVE (NEGATIVE); Mucus MANY /HPF (NEGATIVE); Nitrite NEGATIVE (NEGATIVE); Protein,Urine Dip NEGATIVE (Negative); RBC 0-2 /HPF (0-2); Specific Gravity 1.024 (1.005-1.025); Urobilinogen NEGATIVE mg/dL (0-1)
--- NOTE | 2021-07-15 08:27 | OP ---
SURGERY DATE/TIME: 07/14/2021 1000 PREOPERATIVE DIAGNOSIS: Multiparity desiring tubal sterilization. POSTOPERATIVE DIAGNOSIS: Multiparity desiring tubal sterilization. PROCEDURE: Laparoscopic tubal sterilization via Falope ring application of the right tube and bipolar coagulation on the left tube. SURGEON: Eliseo Gaines D.O. DIE CASTING MACHINE OPERATOR: Valerie Adames, surgical services manager. ANESTHESIA: General. ESTIMATED BLOOD LOSS: Minimal. COMPLICATIONS: None. INDICATIONS: The risks, benefits, indications and alternatives of the procedure were reviewed with the patient prior to the procedure. The patient understood the risk of infection, bleeding, bowel injury, bladder injury, ureteral injury, uterine perforation, pelvic infection, thromboembolic disorder associated with this procedure and desires to have this procedure as a possible means to alleviate her current medical condition. The patient also understood the risk of possible and future ectopic that may be associated with having this procedure. All other forms of control have been discussed with the patient prior to the procedure. DESCRIPTION OF PROCEDURE AND FINDINGS: From this point, the patient is taken to the operating room, given general sedation, placed in dorsal lithotomy position, prepped and draped in the usual sterile fashion. A weighted speculum is then placed in the patient's vagina and the anterior lip of the cervix is grasped with a single tooth tenaculum. From this point, a uterine manipulator was then inserted in through the endocervical canal as a means to manipulate the uterus. Attention was then turned to the patient's abdomen where a 5 mm skin incision was made in the umbilical fold. From this point, pneumoperitoneum was obtained with 4 liters of CO2 gas. A survey of the patient's pelvis and abdomen revealed normal anatomy. From this point, an additional incision was made 2 cm above the symphysis pubis where an 8 mm incision was made and trocar and sleeve were advanced under direct visualization. From this point, the uterus is lifted. The Falope ring applicator was then taken towards the left fallopian tube on the isthmic region where after lifting the left fallopian tube the Falope ring was applied to the left isthmic region. However, it was not displaced on the tube which created minimal bleeding on that side. From that point, the Falope ring applicator was reloaded with another Falope ring and was applied to the right tube where it was lifted on the isthmic region and applied with excellent positioning. The bipolar was then subsequently used on the left fallopian tube on the isthmic region as well as two other contiguous sites. The initial site where it was not displaced and coagulation and there was no bleeding that was noted. From this point, a survey of the patient's pelvic and abdomen revealed normal anatomy. From this point, all instruments were removed from the patient's abdominal region. The incisions were closed with 4-0 Monocryl suture and subsequently the patient was taken out of anesthesia and was taken to the recovery room in stable condition. All instruments and laps were accounted for x2.
== END 2021-07-14 12:05 | disposition home or self-care (01) ==
LOC: SDC 08:41
PROVIDERS: ATTEND Obstetrics & Gynecology
DX: Z30.2 Encounter for sterilization (principal)
CPT/HCPCS: 81001; 84703; 87086; J1100; J1885; J2250; J2405; J2704; J3010